=== PATIENT | female | born 2000 | race Caucasian/White ===

== ENCOUNTER 2022-06-30 22:14 | Emergency (ER) | payer SELFPAY ==
[~2022-06-30] VITALS: Ht 157.5 cm; Wt 59.1 kg
[2022-06-30 22:59] LABS: BASO # 0.04 K/mm3 (0.02-0.10); EOS # 0.03 K/mm3 (0.04-0.40); EOS % 0.4 % (1.0-5.0); HEMOGLOBIN 16.9 g/dL (12.5-16.0); LYMPH# 3.31 K/mm3 (1.50-4.00); MEAN CELL VOLUME 88 fl (78-100); MEAN CORPUSCULAR HEMOGLOBIN 30 pg (27-31); MEAN CORPUSCULAR HGB CONC 34 g/dL (33-37); MEAN PLATELET VOLUME 11.1 fl (7.4-10.4); MONO # 0.42 K/mm3 (0.20-0.80); NEU # 4.27 K/mm3 (1.40-6.50); PLATELET COUNT 286 K/mm3 (130-400); RED BLOOD COUNT 5.68 M/mm3 (4.10-5.30); WHITE BLOOD COUNT 8.1 K/mm3 (4.8-10.8)
[2022-06-30 23:07] LABS: ALBUMIN 5.4 g/dL (3.5-5.0); POTASSIUM 5.7 mmol/L (3.5-5.1)
[2022-06-30 23:09] LABS: CALCIUM 10.5 mg/dL (8.3-10.5)
[2022-06-30 23:10] LABS: TOTAL PROTEIN 8.8 g/dL (6.4-8.3)
[2022-06-30 23:12] LABS: TOTAL BILIRUBIN 0.3 mg/dL (0.2-1.2)
[2022-06-30 23:19] LABS: URINE APPEARANCE CLEAR; URINE COLOR STRAW
[2022-06-30 23:20] LABS: PH-URINE 5.5 (5.0 - 8.0); URINE BILIRUBIN NEGATIVE (NEGATIVE); URINE BLOOD TRACE (NEGATIVE); URINE GLUCOSE NEGATIVE (NEGATIVE); URINE KETONE NEGATIVE (NEGATIVE); URINE LEUKOCYTE ESTERASE NEGATIVE (NEGATIVE); URINE NITRATE NEGATIVE (NEGATIVE); URINE PROTEIN(semi-quant) TRACE (NEGATIVE); URINE UROBILINOGEN NORMAL (NORMAL)
[2022-07-01] MEDS ORDERED: LEVETIRACETAM250 MG PO (01:42)
[2022-07-01 01:57] VITALS: BP 117/76
== END 2022-07-01 01:52 | disposition home or self-care (01) ==
LOC: ED 22:14
PROVIDERS: Family Medicine
DX: G40.909 Epilepsy, unspecified, not intractable, without status epilepticus (principal); T42.6X6A Underdosing of other antiepileptic and sedative-hypnotic drugs, initial encounter; F10.10 Alcohol abuse, uncomplicated; Y90.6 Blood alcohol level of 120-199 mg/100 ml; Z91.128 Patient's intentional underdosing of medication regimen for other reason; Z79.899 Other long term (current) drug therapy